=== PATIENT | male | born 1980 | race Asian ===

== ENCOUNTER 2016-05-05 05:23 | Inpatient (IN) | payer OTHER ==
[~2016-05-05] VITALS: Ht 160 cm; Wt 76.7 kg
[2016-05-05] VITALS (13 sets, daily range): BP systolic 118–133; BP diastolic 71–84
[2016-05-05] MEDS ORDERED: NKM (06:05)
[2016-05-05] MEDS ORDERED: Thrombin 5000 units TOPIC ONE (07:06)
[2016-05-05] MEDS ORDERED: Bacitracin 50000 Units Vial ONE (07:07)
[2016-05-05] MEDS ORDERED: Vancomycin 1gm inj IVPB ONE (07:07)
[2016-05-05] MEDS ORDERED: Bupivacaine w/Epi 0.5% 30ml Vial INJ ONE (07:07)
--- NOTE | 2016-05-05 07:23 | Pre-Procedure Note/Attestation ---
Pre-Procedure Note/Attestation Complete Prior to Procedure Procedure Narrative: ACDF C56 and C67 Indications for Procedure Pre-Operative Diagnosis: cervical radiculopathy Attestation I attest that I discussed the nature of the procedure; its benefits; risks and complications; and alternatives (and the risks and benefits of such alternatives ), prior to the procedure, with the patient (or the patient's legal registration representative). I attest that, if there was a reasonable possibility of needing a blood transfusion, the patient (or the patient's legal registration representative) was given the [facility] standardized written summary, pursuant to the Sajan Vladimir Blood Safety Act ([place] Health and Safety Code # 1645, as amended). I attest that I re-evaluated the patient just prior to the surgery and that there has been no change in the patient's H&P, except as documented below: KAVITA PRADO May 05, 2016 07:23
[2016-05-05] MEDS ORDERED: Sterile Water Irrig 1000ml IRRIG ONE (07:30)
[2016-05-05] MEDS ORDERED: Zemuron 50mg/5ml Inj IV ONE (07:30)
[2016-05-05] MEDS ORDERED: Midazolam 2mg/2ml Inj ONE (07:30)
[2016-05-05] MEDS ORDERED: Propofol 10mg/ml 20ml IV ONE (07:30)
[2016-05-05] MEDS ORDERED: fentaNYL 100 mcg/2 mL IV ONE (07:30)
[2016-05-05] MEDS ORDERED: Propofol 10mg/ml 100ml btl IV ONE (07:30)
[2016-05-05] MEDS ORDERED: LR 1000ml ONE (07:30)
[2016-05-05] MEDS ORDERED: NS Irrig 1000ml ONE (07:30)
[2016-05-05] MEDS ORDERED: ePHEDrine 50mg/ml Inj ONE (07:30)
[2016-05-05] MEDS ORDERED: LR 1000ml 1,000 ML IVLG SCH (08:42)
[2016-05-05] MEDS ORDERED: LORazepam Inj 2mg/ml 1ml IV PRN (08:45)
[2016-05-05] MEDS ORDERED: Meperidine 25mg/ml Inj IV PRN (08:45)
[2016-05-05] MEDS ORDERED: Labetalol 5mg/ml 20ml vial IV PRN (08:45)
--- NOTE | 2016-05-05 08:48 | Anethesia Preoperative Eval ---
Anesthesia Pre-op PMH/ROS General Date of Evaluation: May 05, 2016 Time of Evaluation: 07:25 Anesthesiologist: Abdulkadir ASA Score: ASA 1 Mallampati Score Class I : Soft palate, uvula, fauces, pillars visible Class II: Soft palate, uvula, fauces visible Class III: Soft palate, base of uvula visible Class IV: Only hard plate visible Mallampati Classification: Class II Surgeon: Bean Diagnosis: Disc herniation Surgical Procedure: ACDF C5-6, C6-7 Allergies: Coded Allergies: No Known Allergies (Unverified , 05/02/16) Medications: see eMAR Past Medical History Cardiovascular: Denies: CAD, HTN, MO, arrhythmia, other, valve dz Pulmonary: Denies: COPD, ASHKAN, asthma, other Gastrointestinal/Genitourinary: Denies: CRI, ESRD, GERD, other Neurologic/Psychiatric: Denies: CVA, TIA, dementia, depression/anxiety, other Endocrine: Denies: DM, hypothyroidism, other, steroids HEENT: Denies: [place] (L), [place] (R), cataract (L), cataract (R), glaucoma, other Hematology/Immune: Denies: DVT, anemia, bleeding disorder, other Musculoskeletal/Integumentary: Denies: DDD, DJD, OA, RA, edema, other PMH Narrative: Denies PSxH Narrative: Hand surgery, T&A, RAQUEL Anesthesia Pre-op Phys. Exam Physician Exam Last Vital Signs Date Time Temp Pulse Resp B/P Pulse Ox O2 Delivery O2 Flow Rate FiO2 05/05/16 06:06 97.7 76 20 133/73 96 Room Air Constitutional: NAD Neurologic: CN 2-12 intact Cardiovascular: RRR, no M/R/G Respiratory: CTA Gastrointestinal: S/NT/ND Airway Exam Mallampati Score: Class II MO: full ROM: full Teeth: intact Anesthesia Pre-op A/P Labs WNL Studies Pre-op Studies: EKG - SR, slight conduction delay Risk Assessment & Plan Assessment: Healthy male for ACDF Plan: GETA, gllide scope for intubation Status Change Before Surgery: No Pre-Antibiotics Drug: Ancef Given Within 1 Hr of Incision: Yes Time Given: 07:45 RYANNE CERON M.D. May 05, 2016 08:48
--- NOTE | 2016-05-05 08:49 | Immediate Post-Op Evaluation ---
Immediate Post-Op Evalulation Immediate Post-Op Evalulation Procedure: ACDF C5-6, C6-7 Date of Evaluation: May 05, 2016 Time of Evaluation: 10:55 IV Fluids: 1550 Estimated Blood Loss: 50 Blood Pressure Systolic: 120 Blood Pressure Diastolic: 72 Pulse Rate: 91 Respiratory Rate: 15 O2 Sat by Pulse Oximetry: 96 Temperature (Fahrenheit): 97.1 Pain Score (1-10): 0 Nausea: No Vomiting: No Complications No complication Patient Status: reacts, patent, extubated, none Hydration Status: adequate Drug: Ancef Given Within 1 Hr of Incision: Yes Time Given: 07:45 RYANNE CERON M.D. May 05, 2016 08:49
[2016-05-05] MEDS ORDERED: LR 1000ml 1,000 ML IV SCH (09:30)
[2016-05-05] MEDS: Hydromorphone 0.5mg/0.5ml inj IVP PRN ×2 (11:16→11:31)
--- NOTE | 2016-05-05 11:18 | Brief Operative Note ---
Immediate Post Operative Note Operative Note Pre-op Diagnosis: cervical radiculopathy Procedure: acdf c56 and c67 Post-op Diagnosis: cervical radic cervical radic Surgeon: ally Lead Tank Mechanic: denilson Anesthesiologist: viv Anesthesia: general Specimen: none Complications: none Condition: stable Fluids: 1000cc Estimated Blood Loss: minimal Drains: none Implant(s) used?: Yes KAVITA PRADO May 05, 2016 11:18
--- NOTE | 2016-05-05 14:53 | 48 Hour Post Anesthesia Eval ---
Post Anesthesia Evaluation Procedure: ACDF C5-6, C6-7 Date of Evaluation: May 05, 2016 Time of Evaluation: 14:40 Blood Pressure Systolic: 121 0: 79 Pulse Rate: 83 Respiratory Rate: 17 Temperature (Fahrenheit): 97.5 O2 Sat by Pulse Oximetry: 96 Airway: patent Nausea: No Vomiting: No Pain Intensity: 1 Hydration Status: adequate Cardiopulmonary Status: Stable Mental Status/LOC: patient returned to baseline Follow-up Care/Observations: As per surgery Post-Anesthesia Complications: No anesthetic complication Follow-up care needed: N/A RYANNE CERON M.D. May 05, 2016 14:53
[2016-05-05] MEDS ORDERED: HYDROmorphone 1mg/ml Carpuject IVP PRN (15:00)
[2016-05-05] MEDS ORDERED: Norco 7.5mg/325mg tab ORAL PRN ×2 (15:00)
[2016-05-05] MEDS ORDERED: Norco 5mg/325mg tab ORAL PRN (15:00)
[2016-05-05] MEDS ORDERED: Naloxone 0.4mg/ml Inj IVP PRN (15:00)
[2016-05-05] MEDS ORDERED: HYDROmorphone 1mg/ml Carpuject SUBQ PRN (15:00)
--- NOTE | 2016-05-05 15:35 | Diagnostic Imaging Report ---
Indications: Neck and bilateral upper extremity pain, cervical fusion Technique: Procedure including fluoroscopy performed by Dr. Del Angel. Portable intraoperative AP and lateral spot film images of the cervical spine obtained. Findings: Comparison: None Initial image demonstrates localizing needle tip overlying the anterior aspect of the C6-7 disc space. Subsequent images demonstrate placement of fusion hardware within and across the anterior margins of the C5-6 and C6-7 disc spaces. IMPRESSION: Intraoperative changes as described
[2016-05-05] MEDS: ceFAZolin sod 1 GM in D5W 55 ML IV SCH (16:03)
[2016-05-05] MEDS: D5 1/2NS 1,000 ML IV SCH (16:04)
[2016-05-05] MEDS: Docusate 100mg cap ORAL SCH (17:09)
[2016-05-06 00:08] VITALS: BP 132/78
[2016-05-06] MEDS: ceFAZolin sod 1 GM in D5W 55 ML IV SCH ×2 (00:18→09:42)
[2016-05-06] MEDS: D5 1/2NS 1,000 ML IV SCH ×2 (01:46→12:12)
[2016-05-06 04:00] VITALS: BP 134/75
[2016-05-06 07:57] VITALS: BP 132/85
[2016-05-06] MEDS: Docusate 100mg cap ORAL SCH (09:42)
[2016-05-06 12:44] VITALS: BP 139/75
[2016-05-06] MEDS ORDERED: NORCO 5-325 TA1 EACH ORAL (12:52)
[2016-05-06] MEDS ORDERED: SOMA350 MG PO (12:53)
[2016-05-06] MEDS ORDERED: Tubing IV Secondary IV ONE (16:44)
[2016-05-06] MEDS ORDERED: D5 1/2NS 1000ml IV ONE (16:44)
--- NOTE | 2016-05-08 13:45 | Discharge Summary ---
Discharge Summary Hospital Course Date of Admission May 05, 2016 at 05:23 Date of Discharge May 06, 2016 at 16:40 Admitting Diagnosis HPI Alo Horvath is a 35 year old male who was admitted on May 05, 2016 at 05:23 for C5-6 ,C6-7 Disc Herniation Hospital Course [id number] Discharge Discharge Disposition Patient was discharged to Home (01) Discharge Diagnoses: Farhana Rockwell NP May 08, 2016 13:45
--- NOTE | 2016-05-08 23:30 | Discharge Summary 2 SIG ---
DATE OF ADMISSION: 05/05/2016 DATE OF DISCHARGE: 05/06/2016 BRIEF HOSPITAL COURSE: The patient is a 35-year-old male who has been suffering from cervical radiculopathy was admitted on 05/05/2016 and underwent ACDF on C5 through C6, and C6 through C7. Postoperatively, he was given pain management and physical therapy and he was eventually discharged home. FINAL DIAGNOSIS: Cervical radiculopathy, status post ACDF on C5 through C6 and C6 through C7. Zane Del Angel M.D. I have been assigned to dictate discharge summary on this account and I was not involved in the patient's management. Farhana Rockwell N.P. DR: KARLEY JOB#: [id number] CC:
--- NOTE | 2016-05-09 00:10 | Operative Note - Dictated ---
DATE OF SURGERY: 05/05/2016 PREOPERATIVE DIAGNOSIS: C5-C6 and C6-C7 disk protrusion/herniation with spinal cord compression at C6-C7 with mild radiculopathy and upper motor neuron signs. POSTOPERATIVE DIAGNOSIS: C5-C6 and C6-C7 disk protrusion/herniation with spinal cord compression at C6-C7 with mild radiculopathy and upper motor neuron signs. PROCEDURE PERFORMED: 1. Interbody arthrodesis at C5-C6 and C6-C7 2. Anterior cervical instrumentation at C5-C6 and C6-C7 3. Anterior cervical diskectomy and decompression of the spinal cord at C5-C6 and C6-C7 4. Anterior foraminotomy at C5-C6 and C6-C7. 5. Autologous bone harvest . 6. Implantation of PEEK interbody device at C5-C6 and C6-C7 with autologous bone, and allograft graft on putty. 7. Intraoperative use of fluoroscopy. 8. Intraoperative use of microscope. 9. MEP/SSEP/EMG. SURGEON: Zane Del Angel M.D. CAREER DEVELOPMENT DIRECTOR: Josafat Goddard M.D. ANESTHESIA: General endotracheal anesthesia. ANESTHESIOLOGIST: Sajan Panchal M.D. EBL: Was less than 50 mL. INTRAVENOUS ANTIBIOTICS: A 2 g of Ancef. COMPLICATIONS: None. BACKGROUND AND INDICATION: This is a pleasant gentleman, who failed nonoperative treatments including epidural steroid injections. Option for above treatment was given. Risks, alternatives, and benefits were discussed with the patient. Risks include, but not limited to, anesthesia complications including , medical complications including liver, kidney, and cardiopulmonary deficits, bleeding infection, dysphonia, dysphagia, hematoma of the neck, nerve root injury, paralysis, spinal cord injury, CSF leak, dural tear, fracturing of the hardware, loosening of the hardware, need for revision, decompression, and fusion swallowing difficulties, esophageal injury, tracheal injury, recurrent laryngeal nerve injury as well as other complications. The patient understood and wished to proceed. Written and verbal consent were given. All the patient's questions were answered. OPERATIVE FINDINGS: Herniated nucleus pulposus at C5-C6 and C6-C7 with spinal cord compression, nerve root compression, and stenosis. DESCRIPTION OF OPERATION: The patient was brought into the operating room supine on a stretcher. Appropriate IV lines were placed by the anesthesiologist. A 2 g of Ancef was administered 30 minutes before the incision. The patient was induced and intubated without complication. The patient was positioned on the operating room table. The neck was placed in neutral alignment. The arms were tucked by the side. All bony prominences were well padded as well as the four extremities. SSEP/MEP/EMG monitoring leads were placed and baseline recordings was done by the Neurophysiology refrigerating technician. Preoperative fluoroscopy revealed the planned incision to be on the right side of the neck over the C5-C6 and C6-C7 interspaces. Fluoroscopy revealed the neck to be in adequate alignment. The neck was prepped and draped in usual sterile fashion. At this point, the intraoperatively sterilely draped microscope was brought into the field and an horizontal incision was made on the anterior right side of the neck in the crease of the neck. Hemostasis was achieved with bipolar cautery. The platysma was incised in line with the skin incision. Blunt dissection was carried out in the interval between the strap muscles and sternocleidomastoid. Superficial cervical fascia was dissected caudally as well cephalad. Carotid pulse was palpated and found to be well lateral to the field of dissection. Deep cervical fascia was encountered and bluntly dissected with a Kitners and finger dissection. The longus coli was found on both sides of the spine. The longus coli was subperiosteally dissected off of the spine. At this point, retractors were set into place. Spinal needle was used to identify the C5-C6 and C6-C7 interspaces via lateral fluoroscopy. At this point, attention was diverted to the diskectomy. Attention was diverted to the C6-C7 level initially. With #15 scalpel, a box incision was carried out over the anterior annulus. With pituitary rongeur, a straight and curved curette #2 and number #3 Kerrison punches, a radical diskectomy was accomplished at C6-C7. A high-speed drill was used to drill the posterior aspect of the vertebral bodies to entail a complete decompression of the spinal cord. A #1 and #2 microcytic curettes were used to remove the PLL and all disk herniation was removed. There was spinal cord compression and disk herniation was removed to relieve neural compression. There was foraminal stenosis and intraforaminal disk herniations as well compressing the exiting bilateral C7 nerve roots, which were removed. Final check of the foramina revealed complete decompression of the foramina on the lateral recess and central canal. Now attention was diverted to the C5-C6 interspace. With the same instruments a radical diskectomy was done. A scalpel was used to remove the anterior anulus and the endplate cartilage was removed with a curette. Endplate bone was well preserved and with #2 and #3 Kerrison punches a radical diskectomy was accomplished. A high-speed drill was used to remove the posterior aspect of the vertebral bodies and this bone was preserved for later implantation into the interbody space. With #1 and #2 microcytic curette, the PLL was removed. Complete decompression of the spinal canal the lateral recess and foramina entail. There was intraforaminal disk herniations and foraminal stenosis, which was decompressed. A final check revealed complete decompression. A Valsalva 40 mmHg was done. There was no CSF leak. Both levels were copiously irrigated with triple antibiotic solution. At this point, attention was diverted to measurement of the spaces with trial. Different trials from the spinal element system was used and a 16 x 13 x 8 mm in height lordotic PEEK interbody device was chosen packed with autograft bone as well as graft on putty and gently tamped into place at C6-C7 and C5-C6 with adequate lordosis at both levels. Now Tyrone plate was chosen, bent into a lordotic fashion and fixed to the anterior surface of the C5-C6 and C7 vertebral bodies with self-drilling 14 mm screws. Each screw had excellent purchase within the bone and fat below the locking mechanism of the plate appropriately. At this point, final AP and lateral fluoroscopy revealed all instrumentation to be in excellent position. The wound was copiously irrigated with triple antibiotic solution. Hemostasis was contained multiple times with Gelfoam, thrombin and FloSeal. There was no bleeding at the end of the case and a Hemovac drain was deemed not necessary. The platysma was closed with 3-0 Vicryl sutures. The subdermal and subcuticular layers were closed with 2-0 Vicryl sutures in a watertight interrupted fashion. The skin was closed with Dermabond. Sterile dressing tape was placed. All sponge, needle, and instrument counts were correct. Sterile dressing tape was placed. Cervical collar was placed. The patient was extubated and taken to recovery room in stable condition. He was given a postoperative prescription, postoperative instructions as well as the postoperative appointment. Zane Del Angel M.D. DR: Valery JOB#: [id number] CC: LILIANA
== END 2016-05-06 16:40 | disposition home or self-care (01) | DRG 472 ==
LOC: SDSOVERFLO 05:23 → 3E 12:40
DX: M50.122 Cervical disc disorder at C5-C6 level with radiculopathy (principal); M50.022 Cervical disc disorder at C5-C6 level with myelopathy; M48.02 Spinal stenosis, cervical region; Z87.891 Personal history of nicotine dependence
CPT/HCPCS: 36415; 72040; 76001; 86850; 86900; 86901; 87081; 94003; 94150; J2250; J2405